=== PATIENT | male | born 1965 | race African-American/Black ===

== ENCOUNTER → 2016-11-24 | Outpatient (CLI) | payer OTHER ==
[~2016-11-24] MED LIST: ASPI81TA50 PO; CHLO25TA PO; GLYB5TAB3 PO; LOSA100T6 PO; METF10002 PO; MINO2.5T PO; NIFE30TA17 PO; NIFE60TA10 PO; SIMV20TA3 PO; SITA1TAB11 PO
--- NOTE | 2016-11-24 09:10 | KCIC ---
PROCEDURE Cervical spine, two views. HISTORY Radiculopathy. Cervical fusion. COMPARISON Cervical spine, three views February 17, 2016. FINDINGS Re- demonstrated anterior fusion of C4-C6 with interbody spacers. No perihardware lucency is seen. The alignment is maintained. Other disc spaces maintained. Prevertebral soft tissues are normal. Lung apices clear. IMPRESSION Stable anterior fusion of C4-C6. Electronically signed by: Jese Back MD (Nov 24, 2016 09:09:13)
== END | disposition home or self-care (01) ==
LOC: KCIC 08:24
PROVIDERS: ATTEND Neurological Surgery
DX: M43.22 Fusion of spine, cervical region (principal)
CPT/HCPCS: 72040